=== PATIENT | female | born 1980 | race African-American/Black ===

== ENCOUNTER 2020-12-28 16:37 | Outpatient (CLI) | payer OTHER, SELFPAY ==
--- NOTE | ~2020-12-28 | MM_ITS ---
EXAMINATION: MM screening silvia BI w janie HISTORY: Screening TECHNIQUE: Craniocaudal and mediolateral oblique 3-D tomosynthesis images were obtained and synthetic 2-D images were generated. CAD analysis was submitted and interpreted. COMPARISON: No prior mammogram is available for comparison at this institution. BREAST PARENCHYMAL COMPOSITION: There are scattered areas of fibroglandular density. FINDINGS: There is no evidence of suspicious mass, calcification, or architectural distortion to sugg est malignancy in either breast. There has been no suspicious interval change. IMPRESSION: 1. No mammographic evidence of malignancy. 2. Recommend routine screening mammography in one year. BI-RADS Category 1: Negative Reviewed, dictated and finalized at location A.
== END 2020-12-28 16:38 | disposition home or self-care (01) ==
LOC: ANHIMG 16:43
PROVIDERS: PCP Family Medicine; Visit Provider Family Medicine
DX: Z12.31 Encounter for screening mammogram for malignant neoplasm of breast (principal)
CPT/HCPCS: 77063; 77067

== ENCOUNTER 2024-07-25 09:27 | Outpatient (CLI) | payer OTHER, SELFPAY ==
--- NOTE | ~2024-07-25 | MM_ITS ---
EXAMINATION: MM screening [facility] BI w janie HISTORY: Screening mammogram TECHNIQUE: Craniocaudal and mediolateral oblique 3-D tomosynthesis images were obtained and synthetic 2-D images were generated. CAD analysis was submitted and interpreted. COMPARISON: 12/28/2020 BREAST PARENCHYMAL COMPOSITION:Not Dense. There are scattered areas of fibroglandular density. FINDINGS: Probable low-density mass of the lower, slightly outer right breast. Stable parenchymal celso earance of the left breast. No suspicious microcalcifications. IMPRESSION: Probable lower, outer right breast mass, as above. Spot compression views and possible ultrasound ar e recommended for further evaluation. BI-RADS Category 0: Incomplete: Needs additional imaging evaluation. Reviewed, dictated and finalized at location . IMPRESSION: Probable lower, outer right breast mass, as above. Spot compression views and possible ultrasound are recommended for further evaluation. BI-RADS Category 0: Incomplete: Needs additional imaging evaluation.
--- OUTSIDE RECORDS SUMMARY | 2024-07-25 09:34 | XMS_ITS | Clinical Summary ---
Author Organization [facility] Address [address] [place] [address] Care Team Providers Care Center Machine Set Up Operator Name Role Phone Kindra Solnao MD Primary Care Provider + Allergies No known active allergies Medications atorvastatin (LIPITOR) 40 mg tablet Take 40 mg by mouth daily 4 201 9 Active ferrous sulfate 325 mg (65 mg of elemental iron) tabletIndicatio ns:Iron Deficiency Anemia Take 325 mg of elemental iron by mouth 2 (two) times a day Active Active Problems No known active problems Surgical History Surgery Date Site/Laterality Comments CHOLECYSTECTOMY SECTION 05/20/2007 - 05/19/2008 Medical History Medical History Date Comments Hyperlipemia Family History Medical History Relation Name Comments Heart failure Father Relation Name Status Comments Father Alive Mother Alive Social History Tobacco Use Types Packs/Day Years Used Date Smoking Tobacco: Never Alcohol Use Standard Drinks/Week Comments Not Currently 0 (1 standard drink = 0.6 oz pur e alcohol) Personal Safety Answer Date Recorded Getting School Help Needed Not on file 05/21 Comments No Sex and Gender Information Value Date Recorded Sex Assigned at Not on file Legal Sex 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 Gender Identity Not on file Sexual Orientation Not on file Obstetrics History Last Filed Vital Signs Vital Sign Reading Time Taken Comments Blood Pressure 104/70 07/11/2021 1:25 PM ORNAMENTAL METAL WORKER Pulse 64 07/11/2021 1:25 PM ORNAMENTAL METAL WORKER Temperature 36.7 C (98.1 F) 05/27/2021 2:34 AM ORNAMENTAL METAL WORKER Respiratory Rate 14 05/27/2021 5:19 AM ORNAMENTAL METAL WORKER Oxygen Saturation 99% 06/08/2021 2:37 PM ORNAMENTAL METAL WORKER Inhaled Oxygen Concentration - - Weight 118.8 kg (262 lb) 06/08/2021 2:37 PM ORNAMENTAL METAL WORKER Height 153.4 cm (5' 0.4 ) 06/08/2021 2:37 PM ORNAMENTAL METAL WORKER Body Mass Index 50.49 06/08/2021 2:37 PM ORNAMENTAL METAL WORKER Plan of Treatment Not on file Insurance [facility] CHOICE [facility] H[facility]/PPO Address: [address] [address] [place] [address] [facility] CHO[employer] [facility] H[facility]/PPO Address: [address] [address] [place] [address] [facility]/PPO Address: [address] [place] [id number] Care Teams Center Machine Set Up Operator Relationship Specialty Start Date End Date Kindra Solano MD PCP - General 03/07/19
--- OUTSIDE RECORDS SUMMARY | 2024-07-25 09:34 | XMS_ITS | Referral Summary ---
Author Organization [facility] Address [address] [place] [address] Care Team Providers Care Pomology Teacher Name Role Phone Kindra Solano MD Primary Care Provider [phone] Source Comments [facility],non-owned Affiliates and Associated Physician Practices is amultiple site organization consisting of ambulatory clinics and hospital sitesin [place], [place], [place] and [place]. This disclosure is being madepursuant to the Care Everywhere program and may not contain all information available regarding this patient. Last updated 18.[facility] Backand Allergies No known active allergies Medications * Be aware that medications may not be up to date on this document. Alwaysverify current medications with the patient. Medication Sig Dispensed Refills Start Date End Date Status ibuprofen (MOTRIN) 600 MG tablet Take 1 Tab by mouth every 6 hours as needed for Pain 20 Tab 11/19/2016 Active methocarbamol (ROBAXIN) 750 MG tablet Take 1 Tab by mouth every 6 hours 20 Tab 11/19/2016 Active Immunizations Name Administration Dates Next Due INFLUENZA VACCINE, QUADR. (F LUZONE; FLULAVAL; FLUARIX; AFLURIA QUADRIVALENT; 6MO+), 0.5 ML (IIV4) 02/12/2017 Social History Tobacco Use Types Packs/Day Years Used Date Smoking Tobacco: Never Smokeless Tobacco: Never Alcohol Use Standard Drinks/Week Comments Yes 1 (1 standard drink = 0.6 oz pur e alcohol) Sex and Gender Information Value Date Recorded Sex Assigned at Not on file Gender Identity Female Sexual Orientation Not on file Last Filed Vital Signs Vital Sign Reading Time Taken Comments Blood Pressure 134/74 11/19/2016 3:49 PM CDT Pulse 92 11/19/2016 3:49 PM CDT Temperature 36.6 C (97.8 F) 11/19/2016 3:49 PM CDT Respiratory Rate 18 11/19/2016 2:49 PM CDT Oxygen Saturation 97% 11/19/2016 2:49 PM CDT Inhaled Oxygen Concentration - - Weight 99.8 kg (220 lb) 11/19/2016 2:49 PM CDT Height 160 cm (5' 3 ) 11/19/2016 2:49 PM CDT Body Mass Index 38.97 11/19/2016 2:49 PM CDT Plan of Treatment Not on file Administered Medications Care Teams Pomology Teacher Relationship Specialty Start Date End Date Kindra Solano MD [address] [place] [address] PCP - General Family Medicine 11/19/16
--- OUTSIDE RECORDS SUMMARY | 2024-07-25 09:34 | XMS_ITS | Clinical Summary ---
Author Organization [facility] Address [address] [place] [address] Phone Care Team Providers Care Radial Router Operator Name Role Phone Unavailable Primary Care Provider Unavailabl e Encounters Date Type Department Care Team Description 07/24/2024 External Device Data [facility]STRACTION Provider, Abstract 07/21/2024 External Device Data [facility]CTION Provider, Abstract 07/07/2024 External Device Data [facility]STRACTION Provider, Abstract 06/23/2024 External Device Data [facility]STRACTION Provider, Abstract 06/10/2024 External Device Data [facility] ABSTRACTION Provider, Abstract 06/09/2024 External Device Data [facility] ABSTRACTION Provider, Abstract from Last 3 Months Immunizations Immunization Administration Dates Next Due INFLUENZA VACCINE TRIVALENT SPLIT VIRUS, (6 MOS UP), 0.5ML (PF), IM 02/21/2024 Social History Tobacco Use Types Packs/Day Years Used Date Smoking Tobacco: Never Assessed Comments Unknown Sex and Gender Information Value Date Recorded Sex Assigned at Not on file Legal Sex Female 2:29 PM CDT Gender Identity Not on file Sexual Orientation Not on file Plan of Treatment Health Maintenance Due Date Last Done Comments DTAP/TDAP/TD VACCINES (1 - Tdap) 07/28/1999 HEPATITIS B VACCINES (1 of 3 - 19+ 3-dose series) 07/28/1999 CERVICAL CANCER SCREENING 2010 BREAST CANCER SCREENING 2020 INFLUENZA VACCINE Completed 02/21/2024 HPV VACCINES Aged Out No longer eligi ble based on patient's age to complete this topic PNEUMOCOCCAL VACCINE 0-49 YEARS Aged Out No longer eligible based on patient's age to complete this topic Insurance [employer] Member Subscriber Plan / Payer (Ef fective 2024-Present) Name:Lesa Rosas Relation to Subscriber:Spouse Subscriber ID:Not on file Payer ID:Not on file Group ID:[id number] Type:RX Commercial Address: [address]
--- OUTSIDE RECORDS SUMMARY | 2024-07-25 09:34 | XMS_ITS | Referral Summary ---
Author Organization [facility] Address [address] [place] [address] Care Team Providers Care Cash Management Clerk Name Role Phone Kindra Solano MD Primary Care Provider + Allergies No known active allergies Medications atorvastatin (LIPITOR) 40 mg tablet Take 40 mg by mouth daily 4 9 Active ferrous sulfate 325 mg (65 mg of elemental iron) tabletIndicatio ns:Iron Deficiency Anemia Take 325 mg of elemental iron by mouth 2 (two) times a day Active Active Problems No known active problems Social History Tobacco Use Types Packs/Day Years Used Date Smoking Tobacco: Never Alcohol Use Standard Drinks/Week Comments Not Currently 0 (1 standard drink = 0.6 oz pur e alcohol) Personal Safety Answer Date Recorded Getting School Help Needed Not on file 05/21 Comments No Sex and Gender Information Value Date Recorded Sex Assigned at Not on file Legal 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 Gender Identity Not on file Sexual Orientation Not on file Last Filed Vital Signs Vital Sign Reading Time Taken Comments Blood Pressure 104/70 07/11/2021 1:25 PM DRY KILN BURNER Pulse 64 07/11/2021 1:25 PM DRY KILN BURNER Temperature 36.7 C (98.1 F) 05/27/2021 2:34 AM DRY KILN BURNER Respiratory Rate 14 05/27/2021 5:19 AM DRY KILN BURNER Oxygen Saturation 99% 06/08/2021 2:37 PM DRY KILN BURNER Inhaled Oxygen Concentration - - Weight 118.8 kg (262 lb) 06/08/2021 2:37 PM DRY KILN BURNER Height 153.4 cm (5' 0.4 ) 06/08/2021 2:37 PM DRY KILN BURNER Body Mass Index 50.49 06/08/2021 2:37 PM DRY KILN BURNER Plan of Treatment Not on file Insurance [facility] CHOICE PLUS [facility] [place] [address] [place] [address] CHOICE PLUS Care Teams Cash Management Clerk Relationship Specialty Start Date End Date Kindra Solano MD PCP - General 03/07/19
--- OUTSIDE RECORDS SUMMARY | 2024-07-25 09:34 | XMS_ITS | Encounter Summary ---
Author Organization [facility] Address [address] [place] [address] Care Team Providers Care Rn Outpatient Surgery Name Role Phone Unavailable Primary Care Provider Unavailabl e Encounter Details Date Type Department Care Team (Late st Contact Info) Description 07/24/2024 External Device Data [facility] ABSTRACTION Provider, Abstract NO ADDRESS ON FILE Social History Tobacco Use Types Packs/Day Years Used Date Smoking Tobacco: Never Assessed Comments Unknown Sex and Gender Information Value Date Recorded Sex Assigned at Not on file Legal Sex Female 2:29 PM CDT Gender Identity Not on file Sexual Orientation Not on file documented as of this encounter Plan of Treatment Not on file documented as of this encounter Visit Diagnoses Not on filedocumented in this encounter
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
--- OUTSIDE RECORDS SUMMARY | 2024-07-25 09:34 | XMS_ITS | Data Portability ---
Author Organization [place] [facility] [employer], Main Office Address [address] [place] [address] Assessment No assessment recorded. Plan of Treatment Reminders Order Date Submit Date Provider Last Modified By Organization Details Last Modified Time Details Appointments None recorded. Lab vitamin D, 25-hydroxy, total, serum 2023 024 [facility], [address], [address], [place], [address], 4 02:53:56 TSH, serum or plasma 2023 024 [employer], [address], [address], [place], [address], 4 02:53:55 CBC w/ auto diff 2023 024 [facility], [address], [place], [address], 4 02:53:53 iron + TIBC + ferritin, serum 2023 024 [facility], [address], [place], [address], 4 02:53:49 HbA1c (hemoglobin A1c), blood 2023 024 [facility], [address], [place], [address], 4 02:53:57 lipid panel, serum 2023 024 [facility], [address], [address], [place], [address], 4 02:53:51 CMP, serum or plasma 2023 024 [facility], [address], [address], [place], [address], 4 02:53:52 vitamin D, 25-hydroxy, total, serum 2022 023 [email or web address] [id number] Not available 3 07:43:25 BMP, serum or plasma 2022 023 [email or web address] Not available 3 07:43:26 lipid panel, serum 2022 023 [email or web address] Not available 3 07:43:25 hepatic function panel, serum 2022 023 [email or web address] Not available 3 07:43:25 iron + total iron-bindin g capacity (TIBC), serum 2022 023 [email or web address] Not available 3 07:43:25 ferritin, serum or plasma 2022 023 [email or web address] Not available 3 07:43:25 CBC w/ auto diff 2022 023 [email or web address] Not available 3 07:43:25 Referral None recorded. Procedures None recorded. Surgeries None recorded. Imaging MAMMO, screening, digital, bilateral - Please call pt to schedule 2023 024 [email or web address] [facility], [address], [place], [address], 5 08:38:42 MAMMO, screening, digital, bilateral - *Please call pt to schedule* 2022 023 [email or web address] 256 [facility], [address], [facility] [address], [place], [address], 3 08:58:03 Medication Orders Zepbound 2.5 mg/0.5 mL subcutaneou s pen injector 2023 024 [facility], [address] [facility], [place], [address], 4 09:12:46 Patient TargetsNo targets recorded. Patient InstructionsNo instructions recorded. Reason for Referral None Reported. Results Created Date Observation Date Name Description Value Unit Range Abnormal Flag Note LastModifiedBy Organization Detail LastModifiedTime 04/02/20 22 04/03/2022 VITAM IN D,25- OH,TO RE,I A vitamin D,25-oh,tota l,ia 18 NG/mL 30-100 low Vitam in D Statu s 25-OH Vitam in D: Defic iency : <20 ng/mL Insuf ficie ncy: 20 - 29 ng/mL Optim al: > or = 30 ng/mL For 25-OH Vitam in D testi ng on patie nts on D2-forde pplem entat ion and patie nts for whom quant itati on of D2 and D3 fract ions is requi red, the [facility] e[facility](TM ) 25-OH VIT D, (D2,D 3), LC/MS /MS is recom jairo d: order code 48329 (joselito ents >2yrs ). See Note 1 Note 1 For addit ional infor meliza vitale refer to http: //carmen daniels.Que stDia gnost ics.c om/fa q/FAQ 199 (This link is being provi ded for infor juani russell/ deonte kapoor purpo ses only. ) Not Available [facility] [employer] [facility] [address] [address], [place], [address], 04/03/2022 07:15:11 04/02/20 22 04/03/2022 COMPR EHENS [place] METAB OLIC PANEL eGFR 113 mL/mi n/1.7 3m2 > or = 60 normal The eGFR is based on the CKD-E PI 2020 equat ion. To calcu late the new eGFR from a previ ous Creat inine or Cysta solitario C resul t, go to https ://jm nguyen.o kael/rocco hernándezben moreira s/ kdoqi /gfr% 5Fcal culat or Not Available [address] [address] [place], [address], 04/03/2022 07:15:10 04/02/20 22 04/03/2022 COMPR EHENS [place] METAB OLIC PANEL glucose 85 mg/dL 65-99 normal Fasti ng refer ence inter dipika Not Available [address] [place], [address], 04/03/2022 07:15:10 04/02/20 22 04/03/2022 COMPR EHENS [place] METAB OLIC PANEL urea nitrogen (BUN) 11 mg/dL 7-25 normal Not Available [address] [address] [place], [address], 04/03/2022 07:15:10 04/02/20 22 04/03/2022 COMPR EHENS [place] METAB OLIC PANEL creatinine 0.67 mg/dL 0.50-0 .99 normal Not Available [address], [address], 04/03/2022 07:15:10 04/02/20 22 04/03/2022 COMPR EHENS [place] METAB OLIC PANEL BUN/creatini ne ratio not applic able (calc ) 6-22 Not Available [address] [place], [address], 04/03/2022 07:15:10 04/02/20 22 04/03/2022 COMPR EHENS [place] METAB OLIC PANEL sodium 140 mmol/ L 135-14 6 normal Not Available [address] [place], [address], 04/03/2022 07:15:10 04/02/20 22 04/03/2022 COMPR EHENS [place] METAB OLIC PANEL potassium 4.2 mmol/ L 3.5-5. 3 normal Not Available [address], [address], 04/03/2022 07:15:10 04/02/20 22 04/03/2022 COMPR EHENS [place] METAB OLIC PANEL chloride 105 mmol/ L 98-110 normal Not Available [address], [address], 04/03/2022 07:15:10 04/02/20 22 04/03/2022 COMPR EHENS [place] METAB OLIC PANEL carbon dioxide 28 mmol/ L 20-32 normal Not Available [address], [address], 04/03/2022 07:15:10 04/02/20 22 04/03/2022 COMPR EHENS [place] METAB OLIC PANEL calcium 9.1 mg/dL 8.6-10 .2 normal Not Available [address], [address], 04/03/2022 07:15:10 04/02/20 22 04/03/2022 COMPR EHENS [place] METAB OLIC PANEL protein, total 7.1 g/dL 6.1-8. 1 normal Not Available [address], [address], 04/03/2022 07:15:10 04/02/20 22 04/03/2022 COMPR EHENS [place] METAB OLIC PANEL albumin 3.9 g/dL 3.6-5. 1 normal Not Available [address], [address], 04/03/2022 07:15:10 04/02/20 22 04/03/2022 COMPR EHENS [place] METAB OLIC PANEL globulin 3.2 g/dL_ (calc ) 1.9-3. 7 normal Not Available [address], [address], 04/03/2022 07:15:10 04/02/20 22 04/03/2022 COMPR EHENS [place] METAB OLIC PANEL albumin/glob ulin ratio 1.2 (calc ) 1.0-2. 5 normal Not Available [address], [address], 04/03/2022 07:15:10 04/02/20 22 04/03/2022 COMPR EHENS [place] METAB OLIC PANEL bilirubin, total 0.3 mg/dL 0.2-1. 2 normal Not Available [address], [address], 04/03/2022 07:15:10 04/02/20 22 04/03/2022 COMPR EHENS [place] METAB OLIC PANEL alkaline phosphatase 104 U/L 31-125 normal Not Available [address], [address], 04/03/2022 07:15:10 04/02/20 22 04/03/2022 COMPR EHENS [place] METAB OLIC PANEL AST 18 U/L 10-30 normal Not Available [address], [address], 04/03/2022 07:15:10 04/02/20 22 04/03/2022 COMPR EHENS [place] METAB OLIC PANEL ALT 18 U/L 6-29 normal Not Available [address], [address], 04/03/2022 07:15:10 04/02/20 22 04/03/2022 HEMOG LOBIN A1C hemoglobin A1C 5.6 %_of_ total _HGB <5.7 normal For the purpo se of scree shahana for the prese nce of diabe rosemary: <5.7% Consi stent with the absen ce of diabe rosemary 5.7-6 .4% Consi stent with incre ased risk for diabe rosemary (pred iabet es) > or =6.5% Consi stent with diabe rosemary This assay resul t is consi stent with a decre ased risk of diabe rosemary. Curre ntly, no conse nsus exist s colleen franco use of hemog lobin A1c for diagn osis of diabe rosemary in child otto. Accor ding to Ameri can Diabe rosemary Assoc iatio n (ADA) guide lines , hemog lobin A1c <7.0% repre sents optim al contr ol in non-p regna nt diabe tic patie nts. Diffe rent metri cs may apply to speci fic patie nt popul ation s. Stand ards of Medic al Care in Diabe rosemary(A DA). Not Available [address], [address], 04/03/2022 07:14:17 04/02/20 22 04/03/2022 CBC (H/H, RBC, INDIC ES, WBC, PLT) platelet count 369 thous and/u L 140-40 0 normal Not Available [address], [address], 04/03/2022 07:14:16 04/02/20 22 04/03/2022 CBC (H/H, RBC, INDIC ES, WBC, PLT) MCH 24.3 pg 27.0-3 3.0 low Not Available [facility] [address], [address], 04/03/2022 07:14:16 04/02/20 22 04/03/2022 CBC (H/H, RBC, INDIC ES, WBC, PLT) MCHC 31.0 g/dL 32.0-3 6.0 low Not Available [facility] [address], [address], 04/03/2022 07:14:16 04/02/20 22 04/03/2022 CBC (H/H, RBC, INDIC ES, WBC, PLT) RDW 13.2 % 11.0-1 5.0 normal Not Available [address], [address], 04/03/2022 07:14:16 04/02/2004/03/2022 CBC (H/H, RBC, INDIC ES, WBC, PLT) MPV 9.7 fL 7.5-12 .5 normal Not Available [address], [address], 04/03/2022 07:14:16 04/02/2004/03/2022 CBC (H/H, RBC, INDIC ES, WBC, PLT) white blood cell count 6.0 thous and/u L 3.8-10 .8 normal Not Available [address], [address], 04/03/2022 07:14:16 04/02/2004/03/2022 CBC (H/H, RBC, INDIC ES, WBC, PLT) red blood cell count 5.14 ammon on/uL 3.80-5 .10 high Not Available [address], [address], 04/03/2022 07:14:16 04/02/2004/03/2022 CBC (H/H, RBC, INDIC ES, WBC, PLT) hemoglobin 12.5 g/dL 11.7-1 5.5 normal Not Available [address], [address], 04/03/2022 07:14:16 04/02/2004/03/2022 CBC (H/H, RBC, INDIC ES, WBC, PLT) hematocrit 40.3 % 35.0-4 5.0 normal Not Available [address], [address], 04/03/2022 07:14:16 04/02/20 22 04/03/2022 CBC (H/H, RBC, INDIC ES, WBC, PLT) MCV 78.4 fL 80.0-1 00.0 low Not Available [facility] [address] [address] [place], [address], 04/03/2022 07:14:16 04/02/20 22 04/03/2022 LIPID PANEL , STAND SHERLY cholesterol, total 272 mg/dL <200 high Not Available [facility] [address] [address] [place], [address], 04/03/2022 07:14:15 04/02/20 22 04/03/2022 LIPID PANEL , STAND SHERLY HDL cholesterol 44 mg/dL > or = 50 low Not Available [facility] [address] [address] [place], [address], 04/03/2022 07:14:15 04/02/20 22 04/03/2022 LIPID PANEL , STAND SHERLY non HDL cholesterol 228 mg/dL _(mary jane c) <130 high Non-H DL level > or = 220 is very high and may indic ate gary ic famil ial hyper cassie stero lemia (FH). Clini mary jane asses sment and measu remen t of blood lipid level s shoul d be consi dered for all first -degr ee relat madeline of patie nts with an FH diagn osis. For patie nts with diabe rosemary plus 1 major ASCVD risk facto r, treat ing to a non-H DL-C goal of <100 mg/dL (LDL- C of <70 mg/dL ) is consi dered a thera peuti c optio n. Not Available [facility] [address] [address] [place], [address], 04/03/2022 07:14:15 04/02/20 22 04/03/2022 LIPID PANEL , STAND SHERLY triglyceride s 101 mg/dL <150 normal Not Available [facility] [address] [address] [place], [address], 04/03/2022 07:14:15 04/02/20 22 04/03/2022 LIPID PANEL , STAND SHERLY LDL-choleste rol 206 mg/dL _(mary jane c) high LDL-C level s > or = 190 mg/dL may indic ate famil ial hyper cassie stero lemia (FH). Clini mary jane asses sment and measu remen t of blood lipid level s shoul d be consi dered for all first degre e relat madeline of patie nts with an FH diagn osis. For quest ions about testi ng for famil ial hyper cassie stero lemia , pleas e call [facility] at 1.866 .GENE .INFO . Yung leung T, et al. J Natio nal Lipid Assoc iatio n Recom menda tions for Patie nt-Ce ntere d Manag ement of Dysli pidem ia: Part 1 Journ al of Clini mary jane Lipid ology 2015; 9(2), 129-1 69. Refer ence range : <100 Alexandra able range <100 mg/dL for prima ry preve ntion ; <70 mg/dL for patie nts with CHD or diabe tic patie nts with > or = 2 CHD risk facto rs. LDL-C is now calcu lated using the Shana n-Hop kins calcu latio n, which is a valid ated novel metho d provi ding jennifer r accur acy than the Fried iris equat ion in the estim ation of LDL-C . Shana daniels SS et al. CALEB. 2013; 310(1 9): 1- 2068 (http ://ed ucati on.Qu Rock Kingnet. com/f aq/FA Q164) Not Available [employer] [facility] [address] [place], [address], 04/03/2022 07:14:15 04/02/20 22 04/03/2022 LIPID PANEL , STAND SHERLY chol/HDLC ratio 6.2 (calc ) <5.0 high Not Available [employer] [facility] [address] [place], [address], 04/03/2022 07:14:15 04/02/2004/03/2022 IRON, TIBC AND BEVERLY TIN PANEL iron, total 55 mcg/d L 40-190 normal Not Available [address], [address], 04/03/2022 07:14:14 04/02/20 22 04/03/2022 IRON, TIBC AND BEVERLY TIN PANEL iron binding capacity 353 mcg/d L_(ca lc) 250-45 0 normal Not Available [address], [address], 04/03/2022 07:14:14 04/02/2004/03/2022 IRON, TIBC AND BEVERLY TIN PANEL % saturation 16 %_(ca lc) 16-45 normal Not Available [address], [address], 04/03/2022 07:14:14 04/02/2004/03/2022 IRON, TIBC AND BEVERLY TIN PANEL ferritin 45 NG/mL 16-232 normal Not Available [address], [address], 04/03/2022 07:14:14 01/08/20 23 01/09/2023 MEASL ES/MU MPS/R UBELL A IMMUN ITY rubella antibodies, IgG 1.58 index immune >0.99 Non-i mmune <0.90 Equiv ocal 0.90 - 0.99 Immun e >0.99 Not Available Not Available 01/09/2023 06:17:19 01/08/2001/09/2023 MEASL ES/MU MPS/R UBELL A IMMUN ITY measles antibodies, IgG 47.7 AU/mL immune >16.4 Negat trenton <13.5 Equiv ocal 13.5 - 16.4 Posit trenton >16.4 Prese nce of antib odies to Rubeo la is presu mptiv e evide nce of immun ity excep t when acute infec tion is suspe cted. Not Available Not Available 01/09/2023 06:17:19 01/08/20 23 01/09/2023 MEASL ES/MU MPS/R UBELL A IMMUN ITY mumps abs, IgG 70.3 AU/mL immune >10.9 Negat trenton <9.0 Equiv ocal 9.0 - 10.9 Posit trenton >10.9 A posit trenton resul t gener ally indic ates past expos ure to Mumps virus or previ ous vacci natio n. Not Available Not Available 01/09/2023 06:17:19 03/18/20 24 03/19/2024 HEPAT ITIS C AB W/REF L TO HCV RNA, QN, PCR hepatitis C antibody NON-RE ACTIVE non-re active normal HCV antib archana was non-r eacti ve. There is no labor atory evide nce of HCV infec tion. In most cases , no furth er actio n is requi red. Howev er, if recen t HCV expos ure is suspe cted, a test for HCV RNA (test code 69308 ) is sugmary rincond. For addit ional infor matlamar n meliza e refer to http: //[facility] n.que stdia gnost ics.c om/fa q/FAQ 22v1 (This link is being provi ded for infor matio nal/ educa aleta l purpo ses only. ) Not Available [employer] [address] [address] [place], [address], 03/19/2024 09:17:33 03/18/20 24 03/19/2024 HEPAT ITIS A IGM hepatitis A IgM NON-RE ACTIVE non-re active normal For addit ional infor matlamar n, meliza e refer to http: //[facility] catio n.que stdia gnost ics.c om/fa q/FAQ (This link is being provi ded for infor matio nal/ educa aleta l purpo ses only. ) Not Available [employer] [facility] [address] [place], [address], 03/19/2024 09:17:33 05/18/20 24 05/19/2024 IRON, TIBC AND BEVERLY TIN PANEL iron, total 88 mcg/d L 40-190 normal Not Available [address], [address], 05/19/2024 02:53:48 05/18/20 24 05/19/2024 IRON, TIBC AND BEVERLY TIN PANEL iron binding capacity 334 mcg/d L_(ca lc) 250-45 0 normal Not Available [address], [address], 05/19/2024 02:53:48 05/18/20 24 05/19/2024 IRON, TIBC AND BEVERLY TIN PANEL % saturation 26 %_(ca lc) 16-45 normal Not Available [address], [address], 05/19/2024 02:53:48 05/18/20 24 05/19/2024 IRON, TIBC AND BEVERLY TIN PANEL ferritin 64 NG/mL 16-232 normal Not Available [address], [address], 05/19/2024 02:53:48 05/18/20 24 05/19/2024 LIPID PANEL , STAND SHERLY cholesterol, total 273 mg/dL <200 high Not Available [address], [address], 05/19/2024 02:53:51 05/18/20 24 05/19/2024 LIPID PANEL , STAND SHERLY HDL cholesterol 41 mg/dL > or = 50 low Not Available [address], [address], 05/19/2024 02:53:51 05/18/20 24 05/19/2024 LIPID PANEL , STAND SHERLY triglyceride s 117 mg/dL <150 normal Not Available [address], [address], 05/19/2024 02:53:51 05/18/20 24 05/19/2024 LIPID PANEL , STAND SHERLY LDL-choleste rol 207 mg/dL _(mary jane c) high LDL-C level s > or = 190 mg/dL may indic ate famil ial hyper cassie stero lemia (FH). Clini mary jane asses sment and measu remen t of blood lipid level s shoul d be consi dered for all first degre e relat madeline of patie nts with an FH diagn osis. LDL Cassie stero l (LDL- C) level s > or = 300 mg/dL may indic ate homoz ygous famil ial hyper cassie stero lemia (HoFH ). Untre ated, these extre marylin high LDL-C level s can resul t in rita ture CV event s and morta lity. Patie nts shoul d be ident ified early and provi ded appro priat e inter venti ons to reduc e the cumul ative LDL-C burde n from . For quest ions about testi ng for famil ial hyper cassie stero lemia , pleas e call [facility] at 1.866 .GENE .INFO . Yung leung T, et al. J Natio nal Lipid Assoc iatio n Recom menda tions for Patie nt-Ce ntere d Manag ement of Dysli pidem ia: Part 1 Journ al of Clini mary jane Lipid ology 2015; 9(2), 129-1 69. Barber Swift. et al. (2014 ). Homoz ygous famil ial hyper cassie stero laemi a: new insig hts and jailene nce for clini cians to impro ve detec tion and clini mary jane manag ement . Europ shemar Heart Journ al, 35(35 ), 2143- 2155. Refer ence range : <100 Alexandra able range <100 mg/dL for prima ry preve ntion ; <70 mg/dL for patie nts with CHD or diabe tic patie nts with > or = 2 CHD risk facto rs. LDL-C is now calcu lated using the Shana n-Hop kins calcu latio n, which is a valid ated novel metho d provi ding jennifer r accur acy than the Fried iris equat ion in the estim ation of LDL-C . Shana n SS et al. CALEB. 2013; 310(1 9): 2061- 2068 (http ://ed ucati on.Qu Rock morenoPerceptis. com/f aq/FA Q164) Not Available [facility] [address] [address] [place], [address], 05/19/2024 02:53:51 05/18/20 24 05/19/2024 LIPID PANEL , STAND SHERLY chol/HDLC ratio 6.7 (calc ) <5.0 high Not Available [facility] [address] [address] [place], [address], 05/19/2024 02:53:51 05/18/20 24 05/19/2024 LIPID PANEL , STAND SHERLY non HDL cholesterol 232 mg/dL _(mary jane c) <130 high Non-H DL level > or = 220 is very high and may indic ate gary ic famil ial hyper cassie stero lemia (FH). Clini mary jane asses sment and measu remen t of blood lipid level s shoul d be consi dered for all first -degr ee relat madeline of patie nts with an FH diagn osis. For patie nts with diabe rosemary plus 1 major ASCVD risk facto r, treat ing to a non-H DL-C goal of <100 mg/dL (LDL- C of <70 mg/dL ) is consi dered a thera peuti c optio n. Not Available [facility] [address] [address], [place], [address], 05/19/2024 02:53:51 05/18/20 24 05/19/2024 COMPR EHENS [place] METAB OLIC PANEL glucose 77 mg/dL 65-99 normal Fasti ng refer ence inter dipika Not Available [facility] [address] [place], [address], 05/19/2024 02:53:52 05/18/20 24 05/19/2024 COMPR EHENS [place] METAB OLIC PANEL urea nitrogen (BUN) 13 mg/dL 7-25 normal Not Available [address], [address], 05/19/2024 02:53:52 05/18/20 24 05/19/2024 COMPR EHENS [place] METAB OLIC PANEL creatinine 0.79 mg/dL 0.50-0 .99 normal Not Available [address], [address], 05/19/2024 02:53:52 05/18/20 24 05/19/2024 COMPR EHENS [place] METAB OLIC PANEL eGFR 95 mL/mi n/1.7 3m2 > or = 60 normal Not Available [address], [address], 05/19/2024 02:53:52 05/18/20 24 05/19/2024 COMPR EHENS [place] METAB OLIC PANEL BUN/creatini ne ratio SEE NOTE: (calc ) 6-22 Not Repor jai: BUN and Creat inine are withi n refer ence range . Not Available [address], [address], 05/19/2024 02:53:52 05/18/20 24 05/19/2024 COMPR EHENS [place] METAB OLIC PANEL sodium 141 mmol/ L 135-14 6 normal Not Available [address], [address], 05/19/2024 02:53:52 05/18/20 24 05/19/2024 COMPR EHENS [place] METAB OLIC PANEL potassium 4.0 mmol/ L 3.5-5. 3 normal Not Available [address], [address], 05/19/2024 02:53:52 05/18/20 24 05/19/2024 COMPR EHENS [place] METAB OLIC PANEL chloride 106 mmol/ L 98-110 normal Not Available [address], [address], 05/19/2024 02:53:52 05/18/20 24 05/19/2024 COMPR EHENS [place] METAB OLIC PANEL carbon dioxide 28 mmol/ L 20-32 normal Not Available [address], [address], 05/19/2024 02:53:52 05/18/20 24 05/19/2024 COMPR EHENS [place] METAB OLIC PANEL calcium 9.4 mg/dL 8.6-10 .2 normal Not Available [address], [address], 05/19/2024 02:53:52 05/18/20 24 05/19/2024 COMPR EHENS [place] METAB OLIC PANEL protein, total 7.2 g/dL 6.1-8. 1 normal Not Available [address], [address], 05/19/2024 02:53:52 05/18/20 24 05/19/2024 COMPR EHENS [place] METAB OLIC PANEL albumin 4.4 g/dL 3.6-5. 1 normal Not Available [address], [address], 05/19/2024 02:53:52 05/18/20 24 05/19/2024 COMPR EHENS [place] METAB OLIC PANEL globulin 2.8 g/dL_ (calc ) 1.9-3. 7 normal Not Available [address], [address], 05/19/2024 02:53:52 05/18/20 24 05/19/2024 COMPR EHENS [place] METAB OLIC PANEL albumin/glob ulin ratio 1.6 (calc ) 1.0-2. 5 normal Not Available [address], [address], 05/19/2024 02:53:52 05/18/20 24 05/19/2024 COMPR EHENS [place] METAB OLIC PANEL bilirubin, total 0.6 mg/dL 0.2-1. 2 normal Not Available [address], [address], 05/19/2024 02:53:52 05/18/20 24 05/19/2024 COMPR EHENS TR[place] METAB OLIC PANEL alkaline phosphatase 98 U/L 31-125 normal Not Available [address], [address], 05/19/2024 02:53:52 05/18/20 24 05/19/2024 COMPR EHENS TR[place] METAB OLIC PANEL AST 20 U/L 10-30 normal Not Available [address], [address], 05/19/2024 02:53:52 05/18/20 24 05/19/2024 COMPR EHENS TR[place]ON METAB OLIC PANEL ALT 19 U/L 6-29 normal Not Available [address], [address], 05/19/2024 02:53:52 05/18/20 24 05/19/2024 CBC (INCL UDES DIFF/ PLT) white blood cell count 6.0 thous and/u L 3.8-10 .8 normal Not Available [address], [address], 05/19/2024 02:53:53 05/18/20 24 05/19/2024 CBC (INCL UDES DIFF/ PLT) red blood cell count 5.00 ammon on/uL 3.80-5 .10 normal Not Available [address], [address], 05/19/2024 02:53:53 05/18/20 24 05/19/2024 CBC (INCL UDES DIFF/ PLT) hemoglobin 12.8 g/dL 11.7-1 5.5 normal Not Available [address], [address], 05/19/2024 02:53:53 05/18/20 24 05/19/2024 CBC (INCL UDES DIFF/ PLT) hematocrit 41.5 % 35.0-4 5.0 normal Not Available [address], [address], 05/19/2024 02:53:53 05/18/20 24 05/19/2024 CBC (INCL UDES DIFF/ PLT) MCV 83.0 fL 80.0-1 00.0 normal Not Available [address], [address], 05/19/2024 02:53:53 05/18/20 24 05/19/2024 CBC (INCL UDES DIFF/ PLT) MCH 25.6 pg 27.0-3 3.0 low Not Available [address], [address], 05/19/2024 02:53:53 05/18/20 24 05/19/2024 CBC (INCL UDES DIFF/ PLT) MCHC 30.8 g/dL 32.0-3 6.0 low For adult s, a sligh t decre ase in the calcu lated MCHC value (in the range of 30 to 32 g/dL) is most likel y not clini dell signi shanika t; issac er, it shoul d be inter prete d with cauti on in corre latio n with other red cell adonis eters and the patie nt's clini mary jane condi tion. Not Available [facility] [address], [address], 05/19/2024 02:53:53 05/18/20 24 05/19/2024 CBC (INCL UDES DIFF/ PLT) RDW 13.1 % 11.0-1 5.0 normal Not Available [address] [place], [address], 05/19/2024 02:53:53 05/18/20 24 05/19/2024 CBC (INCL UDES DIFF/ PLT) platelet count 378 thous and/u L 140-40 0 normal Not Available [address], [address], 05/19/2024 02:53:53 05/18/20 24 05/19/2024 CBC (INCL UDES DIFF/ PLT) MPV 9.7 fL 7.5-12 .5 normal Not Available [address], [address], 05/19/2024 02:53:53 05/18/20 24 05/19/2024 CBC (INCL UDES DIFF/ PLT) absolute neutrophils 3060 cells /uL 1500-7 800 normal Not Available [address], [address], 05/19/2024 02:53:53 05/18/20 24 05/19/2024 CBC (INCL UDES DIFF/ PLT) absolute lymphocytes 2310 cells /uL 850-39 00 normal Not Available [address], [address], 05/19/2024 02:53:53 05/18/20 24 05/19/2024 CBC (INCL UDES DIFF/ PLT) absolute monocytes 420 cells /uL 200-95 0 normal Not Available [address], [address], 05/19/2024 02:53:53 05/18/20 24 05/19/2024 CBC (INCL UDES DIFF/ PLT) absolute eosinophils 162 cells /uL 15-500 normal Not Available [address], [address], 05/19/2024 02:53:53 05/18/20 24 05/19/2024 CBC (INCL UDES DIFF/ PLT) absolute basophils 48 cells /uL 0-200 normal Not Available [address], [address], 05/19/2024 02:53:53 05/18/20 24 05/19/2024 CBC (INCL UDES DIFF/ PLT) neutrophils 51 % normal Not Available [address], [address], 05/19/2024 02:53:53 05/18/20 24 05/19/2024 CBC (INCL UDES DIFF/ PLT) lymphocytes 38.5 % normal Not Available [address], [address], 05/19/2024 02:53:53 05/18/20 24 05/19/2024 CBC (INCL UDES DIFF/ PLT) monocytes 7.0 % normal Not Available [address], [address], 05/19/2024 02:53:53 05/18/20 24 05/19/2024 CBC (INCL UDES DIFF/ PLT) eosinophils 2.7 % normal Not Available [address], [address], 05/19/2024 02:53:53 05/18/20 24 05/19/2024 CBC (INCL UDES DIFF/ PLT) basophils 0.8 % normal Not Available [address], [address], 05/19/2024 02:53:53 05/18/20 24 05/19/2024 TSH W/REF DOMINICK TO FT4 TSH w/reflex to FT4 1.66 mIU/L normal Refer ence Range > or = 20 Years 0.40- 4.50 Pregn teetee Range s First trime ster 0.26- 2.66 Secon d trime ster 0.55- 2.73 Third trime ster 0.43- 2.91 Not Available [facility] [address] [place], [address], 05/19/2024 02:53:55 05/18/20 24 05/19/2024 VITAM IN D,25- OH,TO RE,I A vitamin D,25-oh,tota l,ia 44 NG/mL 30-100 normal Vitam in D Statu s 25-OH Vitam in D: Defic iency : <20 ng/mL Insuf ficie ncy: 20 - 29 ng/mL Optim al: > or = 30 ng/mL For 25-OH Vitam in D testi ng on patie nts on D2-forde pplem entat ion and patie nts for whom quant itati on of D2 and D3 fract ions is requi red, the [facility] Assur eD(TM ) 25-OH VIT D, (D2,D 3), LC/MS /MS is recom jairo d: order code 24094 (joselito ents >2yrs ). See Note 1 Note 1 For addit ional infor meliza vitale e refer to http: //carmen Blanco stDia gnost ics.c om/fa q/FAQ 199 (This link is being provi ded for infor juani russell/ deonte kapoor purpo ses only. ) Not Available [facility] [address] [place], [address], 05/19/2024 02:53:56 05/18/20 24 05/19/2024 HEMOG LOBIN A1C hemoglobin A1C 5.7 %_of_ total _HGB <5.7 high For someo ne witho ut known diabe rosemary, a hemog lobin A1c value betwe en 5.7% and 6.4% is consi stent with predi abete s and shoul d be confi rmed with a follo w-up test. For someo ne with known diabe rosemary, a value <7% indic ates that their diabe rosemary is well contr olled . A1c targe ts shoul d be indiv idual ized based on durat ion of diabe rosemary, age, comor bid condi tions , and other consi derat ions. This assay resul t is consi stent with an incre ased risk of diabe rosemary. Curre ntly, no conse nsus exist s colleen franco use of hemog lobin A1c for diagn osis of diabe rosemary for child otto. Not Available [employer] [facility] [address], [place], [address], 05/19/2024 02:53:57 Result Notes None recorded. Problems Name Problem SNOMED Code Status Onset Date Resolution Date Notes Provider Name and Address Organization Details Recorded Time Anemia 683535279 Active Not Available [facility] 3 08:49:34 Vitamin D deficiency 80681749 Active 2016 Not Available [facility] 3 08:49:34 Menorrhagia 194450226 Active Not Available [facility] 3 08:49:34 Obesity 078263682 Active Not Available [facility] 3 08:49:34 Epidermoid cyst 368824437 Active Not Available [facility] 3 08:49:34 Hyperlipidemi a 72186462 Active Not Available [facility] 3 08:49:34 Iron deficiency anemia 87652801 Active Not Available [facility] 3 08:49:34 Finding of Hepatitis A status 257541388 Active 2023 DELMI Baum-C [address] [facility], [facility] [address], [place], [address] , [facility] [employer] [facility] 4 12:45:43 Problem Notes None recorded. Procedures Surgical History Date Name Laterality Status Provider Name and Address Organization Details Recorded Time 04/28/20 Gallbladder Surgery completed Not Available [facility] 07/18/2022 08:45:24 section completed Not Available [facility] 07/18/2022 08:45:24 Hysterectomy completed Not Available [facility] 07/18/2022 08:45:24 Imaging Results None recorded. Procedure Notes None recorded. Medical Equipment None Reported. Allergies No known drug allergies Medications Name Sig Start Date Stop Date Status Note LastModified by Organization Details LastModified Time cyclobenzap rine 10 mg tablet Take 1 tablet 3 times a day by oral route for 30 days. 05/18 completed Not Available Not Available Not Available amoxicillin 500 mg capsule TAKE 1 CAPSULE BY MOUTH TWICE A DAY FOR 5 DAYS 05/18 completed Not Available Not Available Not Available atorvastati n 40 mg tablet 2024 active Not Available Not Available Not Avai lable atorvastati n 20 mg tablet Take 1 tablet every day by oral route. active Not Available Not Available No t Available ibuprofen 800 mg tablet 12/22 completed Not Available Not Available Not Available fluconazole 150 mg tablet TAKE 1 TABLET BY MOUTH FOR 1 DOSE 11/21 completed Not Available Not Available Not Available hydrocodone 5 mg-acetamin ophen 325 mg tablet TAKE 1 TABLET BY MOUTH EVERY 4 TO 6 HOURS NEEDED active Not Available Not Available No t Available Tubersol 5 tub. unit/0.1 mL intradermal injection solution Inject 0.1 mL every day by intraderm al route for 1 day. 05/18 completed Not Available Not Available Not Available phentermine 37.5 mg tablet TAKE 1 TABLET BY MOUTH ONCE DAILY 12/22 completed Not Available Not Available Not Available sulfamethox azole 800 mg-trimetho prim 160 mg tablet TK 1 T PO BID active Not Available Not Available No t Available tramadol 50 mg tablet active Not Available Not Available No t Available lorazepam 0.5 mg tablet TAKE 1/2 TO 1 TABLET BY MOUTH ONCE DAILY NEEDED 12/22 completed Not Available Not Available Not Available ferrous sulfate 325 mg (65 mg iron) tablet 1 po qhs 08/13 completed Not Available Not Available Not Available polymyxin B sulfate 10,000 unit-trimet hoprim 1 mg/mL eye drops APPLY 1 DROP TO AFFECTED EYE(S) TWICE DAILY FOR 5 DAYS 05/18 completed Not Available Not Available Not Available ibuprofen 600 mg tablet Take 1 tablet 3 times a day by oral route for 30 days. 05/18 completed Not Available Not Available Not Available Vitamin D2 1,250 mcg (50,000 unit) capsule TAKE 1 CAPSULE BY MOUTH TWICE A WEEK active Not Available Not Available No t Available naproxen 500 mg tablet 06/23 completed Not Available Not Available Not Available cholecalcif colt (vitamin D3) 1,250 mcg (50,000 unit) capsule Take 1 capsule every week by oral route. active Not Available Not Available No t Available Fluvirin 2254-1088 45 mcg (15 mcg x 3)/0.5 mL intramuscul ar suspension ADM 0.5ML IM UTD 04/02 completed Not Available Not Available Not Available Afluria Quad (PF) 60 mcg (15 mcg x 4)/0.5 mL IM syringe TO BE ADMINISTE RED BY PHARMACIS T FOR IMMUNIZAT ION 04/02 completed Not Available Not Available Not Available ID NOW COVID-19 Test Kit TEST DIRECTED TODAY 04/02 completed Not Available Not Available Not Available COVID-19 test specimen collection TEST DIRECTED 04/02 completed Not Available Not Available Not Available Zepbound 2.5 mg/0.5 mL subcutaneou s pen injector INJECT 1/2 (ONE-HALF ) ML SUBCUTANE OUSLY ONCE A WEEK active Not Available Not Available No t Available Vitals Date Recorded Body mass index (BMI) Body height Oxygen saturation Oxygen saturation in Arterial blood by Pulse oximetry Heart rate Body temperature Body weight Systolic blood pressure Diastolic blood pressure Provider Name and Address Organization Details Last Updated DateTime 2 43.6 kg/m2 165.1 cm 98 % 98 % 114 /min 98.1 [degF] 946976. 2 g 142 mm[Hg] 84 mm[Hg] Not Available [employer] 3 08:48:04 Date Recorded Body height Provider Name an d Address Organization Details Last Updated DateTime 12/28/2022 165.1 cm Kanwal Mitchell LPN [facility] [employer] 12/28/2022 11:27:26 Date Recorded Body height Body mass index (BMI) Body weight Body temperature Heart rate Oxygen saturation Oxygen saturation in Arterial blood by Pulse oximetry Systolic blood pressure Provider Name and Address Organization Details Last Updated DateTime 3 165.1 cm 42.8 kg/m2 150794. 24 g 97.2 [degF] 114 /min 97 % 97 % 130 mm[Hg] Jin Cantor RN [facility] [employer] 3 09:02:43 Date Recorded Body weight Body mass index (BMI) Body height Body temperature Heart rate Oxygen saturation Oxygen saturation in Arterial blood by Pulse oximetry Systolic blood pressure Diastolic blood pressure Provider Name and Address Organization Details Last Updated DateTime 4 139475. 17 g 39.9 kg/m2 165.1 cm 97.3 [degF] 71 /min 97 % 97 % 128 mm[Hg] 76 mm[Hg] Rosy Benito RN [place] [facility] [employer] [facility] 4 09:03:03 Social History Question Answer Notes LastModified by Organizat ion Details LastModified Time Tobacco Smoking Status Never Smoker Not Available [employer] 07/18/2022 08:45:06 What Is Your Level Of Alcohol Consumption? None [id number].[id number] Information not available 07/18/2022 Do You Wear A Helmet When Biking? Yes MIGRATION.59944 99134 Information not available 07/18/2022 What Is Your Level Of Caffeine Consumption? Occasional MIGRATION.31546 76583 Information not available 07/18/2022 In The 14 Days Before Symptom Onset, Have You Had Close Contact With A Laboratory-confi rmed COVID-19 While That Case Was Ill? No MIGRATION.95493 66230 Information not available 07/18/2022 In The 14 Days Before Symptom Onset, Have You Had Close Contact With A Person Who Is Under Investigation For COVID-19 While That Person Was Ill? No MIGRATION.25123 89824 Information not available 07/18/2022 What Type Of Diet Are You Following? REGULAR MIGRATION.93260 99422 Information not available 07/18/2022 What Is The Highest Grade Or Level Of School You Have Completed Or The Highest Degree You Have Received? 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 No MIGRATION.64037 15122 Information not available 07/18/2022 Do You Use Insect Repellent Routinely? Yes MIGRATION.11476 74402 Information not available 07/18/2022 Where Do You Live? [place] MIGRATION.80565 77440 Information not available 07/18/2022 What Was The Date Of Your Most Recent Tobacco Screening? 04/04/2023 [email or web address] Information not available 04/04/2023 Do You Have Any Pets? No MIGRATION.07211 13461 Information not available 07/18/2022 What Is Your Relationship Status? Single MIGRATION.60482 73826 Information not available 07/18/2022 Do You Use Your Seat Belt Or Car Seat Routinely? Yes MIGRATION.19893 65424 Information not available 07/18/2022 Do You Have Smoke And Carbon Monoxide Detectors In Your Home? Yes MIGRATION.35751 77919 Information not available 07/18/2022 Are You Passively Exposed To Smoke? No MIGRATION.36011 28441 Information not available 07/18/2022 Are There Any Smokers In Your House? No MIGRATION.90237 81760 Information not available 07/18/2022 Do You Participate In Social Media? No MIGRATION.38369 47644 Information not available 07/18/2022 Do You Feel Stressed (tense, Restless, Nervous, Or Anxious, Or Unable To Sleep At Night)? [id number] MIGRATION.04490 07643 Information not available 07/18/2022 Do You Use Any Illicit Or Recreational Drugs? No MIGRATION.99430 75159 Information not available 07/18/2022 Do You Use Sunscreen Routinely? No MIGRATION.37842 22311 Information not available 07/18/2022 Are You Currently In School? No MIGRATION.90394 82120 Information not available 07/18/2022 Do You Have Any Dietary Restrictions? No MIGRATION.88178 31186 Information not available 07/18/2022 Do You Or Have You Ever Used Any Other Forms Of Tobacco Or Nicotine? No MIGRATION.64316 73786 Information not available 07/18/2022 Sex: Unknown Functional Status Question Answer Note LastModified by Organizat ion Details LastModified Time What is your exercise level? Occasional [id number] Information not available 07/18/2022 Mental Status None recorded. Family History Relationship Description Onset Age of this Age Resolved Age Notes LastModified by Organization Details LastModified Time Brother Hypertensive disorder [id number] Not available 07/18/2022 08:45:26 Mother Hypertensive disorder MIGRATION.367 [id number] Not available 07/18/2022 08:45:26 Maternal Grandmother Diabetes mellitus MIGRATION.232 [id number] Not available 07/18/2022 08:45:26 Father Myocardial infarction MIGRATION.240 [id number] Not available 07/18/2022 08:45:26 Medical History No medical history recorded. Gynecological History Statement/Question Response Sexually Active? Y Dislike of Light during Menstrual Headac he N STIs/STDs N Current Control Method Hysterectom y Breast Problems no Discharge no Obstetrics History GPAL:G 0 P 0 0 0 0 Past Encounters Encounter ID Performer Location Encounter Start Date Encounter Closed Date Diagnosis/Indication Diagnosis SNOMED-CT Code Diagnosis ICD10 Code Diagnosis Note [id number] [facility] [place] [address] [place] [address] 12/22/2020 00:00:00 12/22/2020 12:10:16 [id number] [facility] [place] [address] [place] [address] 06/06/2021 00:00:00 06/06/2021 13:34:55 [id number] [facility] [place] [address] [place] [address] 04/02/2022 00:00:00 04/02/2022 13:19:19 [id number] DELMI Hogue [facility] [place] [address] [place] [address] 12/28/2022 11:00:23 12/28/2022 17:01:00 [id number] Kindra Solano MD [facility] [place] [address] [place] [address] 01/07/2023 11:15:54 01/07/2023 11:29:24 [id number] Kindra Solano MD [facility] [place] [address] [facility] [address] [place] [address] 04/04/2023 08:56:51 04/04/2023 16:30:11 Adult health examination 085152403 Z00.00 Z13.1 Has received flu vaccine 3Covid booster at [facility] fasting labss/p hysterecto my for benign reasons, no further pap neededplan colon cancer screen age 45mammogra m order given Screening mammography 24 712825 Z12.31 Anemia 324168534 D64.9 Hyperlipidemia 55417304 E78.5 Z79.899 Vitamin D deficiency 347 52892 E55.9 [id number] CHERISE Baum [facility] [place] [facility] [address] [place] [address] [address] [place] [address] 05/18/2024 08:54:13 05/18/2024 09:27:31 Adult health examination 564478818 Z00.00 Discussed medication compliance and routine follow up.Discuss ed healthy diet and routine exercise.Linda salcedowed vaccine records and made recommenda tions as needed.Enc ouraged annual eye and dental exams, as well as twice yearly dental cleanings. Will check screening labs as listed below. Anemia 700744021 D64.9 Will check labs as listed below. Hyperlipidemia 35532376 E78.5 Z79.899 Patient is not currently taking medication s.Will check labs as listed below. Vitamin D deficiency 347 02706 E55.9 Will check labs as listed below. Diabetes m ellitus screening 369127573 Z13.1 Will check labs as listed below. Thyroid di sorder screening 355274664 Z13.29 Will check labs as listed below. Screening mammography 24 686539 Z12.31 Body mass index 30+ - obesity 197024246 Z68.39 Weight: 240BMI: 39.9Discus sed healthy diet and routine exercise. Health Concerns Section Related Observation LastModified by Organization Detai ls LastModified Time None Recorded Concern Status LastModified by Organization Details LastModified Time None Recorded Advance Directives Directive None Recorded Payers Encounter Date Sequence Insurance Name Policy Number Policy Nelson Covered Member ID Nelson Member ID Guarantor Name 12/28/2022 1 [facility] [id number] Aleida Rosas [id number] Lesa Jordan [place] 01/07/2023 1 [facility] [id number] Aleida Rosas [id number] Lesa Jordan c[place] 04/04/2023 1 [facility] [id number] Aleida Rosas [id number] Lesa Jordan c[place] 05/18/2024 1 [facility] [id number] Aleida Rosas [id number] Lesa Jordan c[place] Notes Date Note Type Note Provider Name and Address Organization Details Recorded Time 04/04/2023 text/html Here for wellness exam Kindra Solano MD [address] [facility], [place] [address], [place], [address], [employer] 04/04/2023 09:24:02 05/18/2024 text/html Patient is a 43 year old female that presents to the office for annual wellness. Patient reports she is doing well overall, denies chest pain and shortness of breath. Patient reports she has been working on diet and exercise but is having issues losing weight. Patient reports drinking plenty of water each day. labs-orderedWWE- no longer gets papMammogram-ord eredColonoscopy- age 52Vgv-[id number] TDTdap-UTD CHERISE Baum [address] [facility], [place] [address], [place], [address], [employer] 05/18/2024 09:18:27 OBGyn Episode No OBEpisode recorded.
--- OUTSIDE RECORDS SUMMARY | 2024-07-25 09:34 | XMS_ITS | Clinical Summary ---
Author Organization [facility] Address [address] [place] [address] Care Team Providers Care Field Agronomist Name Role Phone Kindra Solano MD Primary Care Provider [phone] Source Comments [facility],non-owned Affiliates and Associated Physician Practices is amultiple site organization consisting of ambulatory clinics and hospital sitesin [place], [place], [place] and [place]. This disclosure is being madepursuant to the Care Everywhere program and may not contain all information available regarding this patient. Last updated 18.[facility] Allergies No known active allergies Medications * [...] 11/19/2016 2:49 PM CDT Plan of Treatment Health Maintenance Due Date Last Done Comments LIPID TESTING 1980 MAMMOGRAM 1980 PAP SMEAR 1980 HIV SCREENING 07/28/1995 HEPATITIS C SCREENING 07/23/1998 DTAP/TDAP/TD VACCINES (1 - Tdap) 07/28/1999 HEPATITIS B VACCINE (1 of 3 - 19+ 3-dose series) 07/28/1999 COVID-19 VACCINE (1 - 2023-2 5 season) 2024 INFLUENZA VACCINE (#1) 2024 02/12/2017 DEPRESSION SCREENING 05/20/2024 ZOSTER VACCINE (1 of 2) 2030 HIB VACCINE Aged Out No longer eligi ble based on patient's age to complete this topic HPV VACCINE Aged Out No longer eligi ble based on patient's age to complete this topic MENINGOCOCCAL (Group B) VACCINE Aged Out No longer eligible based on patient's age to complete this topic MENINGOCOCCAL VACCINE Aged Out No chanel cathi eligible based on patient's age to complete this topic PNEUMOCOCCAL VACCINE Aged Out No long er eligible based on patient's age to complete this topic Care Teams Field Agronomist Relationship Specialty Start Date End Date Kindra Solano MD [address] [place] [id number] PCP - General Family Medicine 11/19/16
== END 2024-07-25 09:28 | disposition home or self-care (01) ==
LOC: ANHIMG 09:31
PROVIDERS: PCP Nurse Practitioner Family; Visit Provider Nurse Practitioner Family
DX: Z12.31 Encounter for screening mammogram for malignant neoplasm of breast (principal); R92.8 Other abnormal and inconclusive findings on diagnostic imaging of breast
CPT/HCPCS: 77063; 77067

== ENCOUNTER 2024-08-11 13:29 | Outpatient (CLI) | payer OTHER, SELFPAY ==
--- NOTE | ~2024-08-11 | MMUS_ITS ---
EXAMINATION: MM diagnostic silvia RT w janie, US breast RT limited HISTORY: 44-year-old woman for diagnostic evaluation of a probable low density mass of the lower, sli ghtly outer right breast, described on screening examination dated 07/25/2024. TECHNIQUE: Additional 3-D tomosynthesis images of the right breast were performed and synthetic 2-D i mages were generated. CAD analysis was submitted and interpreted. High resolution limited right breast ultrasound was performed. COMPARISON: 07/25/2024 and 12/28/2020 BREAST PARENCHYMAL COMPOSITION:Not Dense. There are scattered areas of fibroglandular density. FINDINGS: MAMMOGRAPHIC FINDINGS: Spot compression views of the lower slightly outer right breast demonstrates a 7 mm asymmetry on MLO view, stable dating back to 2020. No additional mammographic findings are appreciated in the area designated on screening examination ( approximately 6 cm from the nipple). The mammographic abnormality on screening examination may have r epresented a summation artifact (overlapping fibroglandular tissues) for which ultrasound examination will be performed for confirmation. ULTRASOUND: At the 8:00 position of the right breast approximately 2 cm from the nipple is a well-circumscribed a nechoic avascular structure with increased through transmission measuring 3.6 x 5.0 x 2.6 mm, consist ent with a simple cyst for which no further follow-up is needed. Sonographic evaluation of the remainder of the lower slightly outer right breast demonstrates benign fibroglandular elements without a cystic or solid lesion of concern. IMPRESSION: No mammographic/sonographic or tomographic evidence to suggest the presence of malignancy. Resumption of yearly mammography is recommended. BI-RADS Category 2: Benign finding(s). Reviewed, dictated and finalized at location A. IMPRESSION: No mammographic/sonographic or tomographic evidence to suggest the presence of malignancy. Resumption of yearly mammography is recommended. BI-RADS Category 2: Benign finding(s).
--- OUTSIDE RECORDS SUMMARY | 2024-08-11 15:43 | XMS_ITS | Clinical Summary ---
Author Organization [facility] Address [address] [facility] [place] [address] Care Team Providers Care Continuous Crusher Operator Name Role Phone Kindra Solano MD Primary Care Provider [phone] Source Comments [facility],non-owned Affiliates and Associated Physician Practices is amultiple site organization consisting of ambulatory clinics and hospital sitesin [place], [place], [place] and [place]. This disclosure is being madepursuant to the Care Everywhere program and may not contain all information available regarding this patient. Last updated 18.[facility] Allergies No known active allergies Medications * [...] - 19+ 3-dose series) 07/28/1999 COVID-19 VACCINE ( - 2023-2 5 season) 2024 INFLUENZA VACCINE (#1) 2024 02/12/2017 DEPRESSION SCREENING 05/20/2024 ZOSTER VACCINE (1 of 2) 2030 HIB VACCINE Aged Out No longer eligi ble based on patient's age to complete this topic HPV VACCINE Aged Out No longer eligi ble based on patient's age to complete this topic MENINGOCOCCAL (Group B) VACC INE SHARED DECISION-MAKING Aged Out No longer eligibl e based on patient's age to complete this topic MENINGOCOCCAL GROUPS A/C/Y/W VACCINE Aged Out No longer eligible b ased on patient's age to complete this topic PNEUMOCOCCAL VACCINE Aged Out No long er eligible based on patient's age to complete this topic Care Teams Continuous Crusher Operator Relationship Specialty Start Date End Date Kindra Solano MD [address] [place] [phone] PCP - General Family Medicine 11/19/16
--- OUTSIDE RECORDS SUMMARY | 2024-08-11 15:43 | XMS_ITS | Clinical Summary ---
Author Organization [facility] Address [address] [place] [address] Care Team Providers Care Wall Cleaner Name Role Phone Kindra Solano MD Primary [...] on file Legal Sex Female 5:51 PM TECHNICAL SUPPORT TECHNICIAN Gender Identity Not on file Sexual Orientation Not on file Obstetrics History Last Filed Vital Signs Vital Sign Reading Time Taken Comments Blood Pressure 104/70 07/11/2021 1:25 PM TECHNICAL SUPPORT TECHNICIAN Pulse 64 07/11/2021 1:25 PM TECHNICAL SUPPORT TECHNICIAN Temperature 36.7 C (98.1 F) 05/27/2021 2:34 AM TECHNICAL SUPPORT TECHNICIAN Respiratory Rate 14 05/27/2021 5:19 AM TECHNICAL SUPPORT TECHNICIAN Oxygen Saturation 99% 06/08/2021 2:37 PM TECHNICAL SUPPORT TECHNICIAN Inhaled Oxygen Concentration - - Weight 118.8 kg (262 lb) 06/08/2021 2:37 PM TECHNICAL SUPPORT TECHNICIAN Height 153.4 cm (5' 0.4 ) 06/08/2021 2:37 PM TECHNICAL SUPPORT TECHNICIAN Body Mass Index 50.49 06/08/2021 2:37 PM TECHNICAL SUPPORT TECHNICIAN Plan of Treatment Not on file Insurance [facility] CHO[facility] PLUS [facility] PLUS Care Teams Wall Cleaner Relationship Specialty Start Date End Date Kindra Solano MD PCP - General 03/07/19
--- OUTSIDE RECORDS SUMMARY | 2024-08-11 15:43 | XMS_ITS | Clinical Summary ---
Author Organization [facility] Address [address] [place] [address] Phone Care Team Providers Care Line Out Man Name Role Phone Unavailable Primary Care Provider Unavailabl e Encounters Date Type Department Care Team Description 08/05/2024 External Device Data [facility] ABSTRACTION Provider, Abstract 07/25/2024 External Device Data [facility] ABSTRACTION Provider, Abstract 07/24/2024 External Device Data [facility] ABSTRACTION Provider, [...] of 3 - 19+ 3-dose series) 07/28/1999 PAP SMEAR 2001 CERVICAL CANCER SCREENING 2010 HPV/Cotest 2010 PAP SMEAR 2010 BREAST CANCER SCREENING 2020 INFLUENZA VACCINE Completed 02/21/2024 HPV VACCINES Aged Out No longer eligi ble based on patient's age to complete [place] [address] RX [employer] Member Subscriber Plan / Payer (Ef fective 2024-Present) Name:Lesa Rosas Relation to Subscriber:Spouse Subscriber ID:Not on file Payer ID:Not on file Group ID:[id number] Type:RX Commercial Address: [address]
--- OUTSIDE RECORDS SUMMARY | 2024-08-11 15:43 | XMS_ITS | Referral Summary ---
Author Organization [facility] Address [address] [place] [address] Care Team Providers Care Wheelchair Driver Name Role Phone Kindra Solano MD Primary [...] on file Legal Sex Female 5:51 PM REAL ESTATE SALESPERSON Gender Identity Not on file Sexual Orientation Not on file Last Filed Vital Signs Vital Sign Reading Time Taken Comments Blood Pressure 104/70 07/11/2021 1:25 PM REAL [employer] SALESPERSON Pulse 64 07/11/2021 1:25 PM [employer] SALESPERSON Temperature 36.7 C (98.1 F) 05/27/2021 2:34 AM REAL ESTATE SALESPERSON Respiratory Rate 14 05/27/2021 5:19 AM REAL ESTATE SALESPERSON Oxygen Saturation 99% 06/08/2021 2:37 PM REAL ESTATE SALESPERSON Inhaled Oxygen Concentration - - Weight 118.8 kg (262 lb) 06/08/2021 2:37 PM REAL ESTATE SALESPERSON Height 153.4 cm (5' 0.4 ) 06/08/2021 2:37 PM REAL [employer]STATE SALESPERSON Body Mass Index 50.49 06/08/2021 2:37 PM REAL ESTATE SALESPERSON Plan of Treatment Not on file Insurance [facility] PLUS [facility] [place] [address] [place] [address] CHOICE PLUS Care Teams Wheelchair Driver Relationship Specialty Start Date End Date Kindra Solano MD PCP - General 03/07/19
== END 2024-08-11 13:30 | disposition home or self-care (01) ==
PROVIDERS: PCP Nurse Practitioner Family; Visit Provider Nurse Practitioner Family
DX: R92.8 Other abnormal and inconclusive findings on diagnostic imaging of breast (principal)
CPT/HCPCS: 76642; 77061; 77065; G0279

== ENCOUNTER 2024-11-09 11:10 | Outpatient (CLI) | payer OTHER, SELFPAY ==
--- NOTE | ~2024-11-09 | XR_ITS ---
EXAM/ PROCEDURE: XR knee LT 3V - 11/09/2024 11:17 CDT HISTORY: 44 years old Female with Pain in left knee COMPARISON: None available TECHNIQUE: Three view(s) FINDINGS/ IMPRESSION: There are no fractures or dislocations.Joint space narrowing, subchondral sclerosis, subchondral cyst formation and osteophyte formation, compatible with mild osteoarthritis. Reviewed, dictated and finalized at location A.
== END 2024-11-09 11:11 | disposition home or self-care (01) ==
LOC: MICIMG 11:11
PROVIDERS: PCP Nurse Practitioner Family; Visit Provider Nurse Practitioner Family
DX: M25.562 Pain in left knee (principal)
CPT/HCPCS: 73562